=== PATIENT | female | born 1970 | race Caucasian/White ===

== ENCOUNTER 2018-08-26 16:01 | Emergency (ER) | payer OTHER | END 2018-08-26 16:30 | disposition home or self-care (01) | LOC: MADERS 16:01 | DX: J11.1 Influenza due to unidentified influenza virus with other respiratory manifestations (principal); I10 Essential (primary) hypertension; Z79.899 Other long term (current) drug therapy | CPT/HCPCS: 99283 ==

== ENCOUNTER 2020-02-26 17:10 | Emergency (ER) | payer BC, OTHER | END 2020-02-26 17:46 | disposition home or self-care (01) | LOC: MADERS 17:10 | DX: S83.92XA Sprain of unspecified site of left knee, initial encounter (principal); I10 Essential (primary) hypertension; W18.30XA Fall on same level, unspecified, initial encounter | CPT/HCPCS: 99283 ==

== ENCOUNTER 2020-06-26 12:11 | Emergency (ER) | payer BC ==
[~2020-06-26 12:11] MED LIST: Iopamidol 370 76% 100 ML VIAL ONE
[2020-06-26 12:42] LABS: Bilirubin Small (Negative); Blood, Urine Moderate (Negative); Clarity Clear (Clear); Glucose, Urine (Dipstick) Negative (Negative); Ketone, Urine Negative (Negative); Leukocyte Negative (Negative); Nitrite Negative (Negative); Protein, Urine (Dipstick) 100 mg/dL (Neg-Trace); pH, Urine 5.5 (5.0-9.0)
[2020-06-26 12:43] LABS: Specific Gravity, Urine 1.024 (1.002-1.036)
[2020-06-26 12:51] LABS: WBC/HPF None Seen HPF (0-3)
[2020-06-26 12:52] LABS: Bacteria/HPF 1+ HPF (None Seen)
[2020-06-26 13:07] LABS: #Basophils 0.1 thou/uL (0.0-0.2); #Eosinphils 0.1 thou/uL (0.0-0.7); #Lymphocytes 1.1 thou/uL (1.20-3.40); #Monocytes 0.7 thou/uL (0.11-0.59); #Neutrophils 10.6 thou/uL (1.40-6.50); %Basophils 0.5 % (0.0-1.0); %Eosinophils 0.7 % (0.0-10.0); %Lymphocytes 8.9 % (21.0-51.0); %Monocytes 5.4 % (0.0-10.0); %Neutrophils 84.5 % (42.0-75.0); Hemoglobin 12.1 g/dL (12.0-16.0); Mean Corpuscular HGB CONC 34.2 g/dL (32.0-36.0); Mean Corpuscular Hemoglobin 30.1 pg (27.0-31.0); Mean Corpuscular Volume 87.9 fL (78.0-98.0); Mean Platelet Volume 9.1 fL (7.4-10.4); Platelet Count 211 thou/uL (130-400); RBC Distribution Width 12.6 % (11.5-14.5); Red Blood Cell (RBC) Count 4.02 mill/uL (4.20-5.40); White Blood Cell (WBC) Count 12.6 thou/uL (4.8-10.8)
[2020-06-26 13:26] LABS: ALT (SGPT) 13 U/L (8-55); AST (SGOT) 15 U/L (5-34); Albumin 3.9 g/dL (3.5-5.0); Alkaline Phosphatase 76 U/L (40-110); Anion Gap 15 mmol/L (10-20); BUN (Urea Nitrogen) 14 mg/dL (7.0-18.7); Bilirubin, Total 1.1 mg/dL (0.2-1.2); Calc. Creatinine Clearance 0 mL/min (70-130); Calcium 9.6 mg/dL (7.8-10.44); Carbon Dioxide 26 mmol/L (22-29); Chloride 100 mmol/L (98-107); Estimated GFR-MDRD 45; Globulin 3.4 g/dL (2.4-3.5); Glucose 98 mg/dL (70-105); Lipase 14 U/L (8-78); Protein, Total 7.3 g/dL (6.0-8.3); Sodium 138 mmol/L (136-145)
[2020-06-26] MEDS ORDERED: Dextrose 5% in Water 500 ML ONE (13:58)
[2020-06-26] MEDS ORDERED: metroNIDAZOLE 500 MG/100 ML BAG ONE (13:58)
[2020-06-26] MEDS ORDERED: Sodium Chloride 0.9% 3,000 ML ONE (13:58)
[2020-06-26] MEDS ORDERED: Cefepime 2 GM VIAL ONE (13:58)
[2020-06-26] MEDS ORDERED: Sodium Chloride 0.9% 100 ML ONE (13:58)
--- NOTE | 2020-06-26 14:01 | CT ---
CT ABDOMEN AND PELVIS WITH IV CONTRAST: 06/26/20 INDICATIONS: Upper abdominal pain with nausea. FINDINGS: Lung bases are clear. Imaging of the liver reveals a 1.7 cm cyst along the superior margin of the lef t lobe of the liver under the diaphragm. Another small cystic lesion seen peripheral right lobe of th e liver. The liver is otherwise unremarkable. The spleen and pancreas unremarkable. The gallbladder is mildly distended. There are numerous gallstones seen within the gallbladder lumen with central gas density seen within many of these gallstones. No significant pericholecystic edema i dentified. Adrenal glands and kidneys unremarkable. Small bowel loops normal caliber. The right colon is predominantly decompressed although there appears to be mild fluid filled distent ion of the cecum which is low lying in the pelvis. There is a radiopaque density along the tip of the cecum which may indicate prior appendectomy procedure. Mural thickening of the ascending colon canno t be excluded. The transverse colon is gas filled and unremarkable. The left colon shows diffuse diverticulosis. There is inflammatory change surrounding diverticula in the lower descending colon suggesting changes of diverticulitis. There is no evidence of fluid or abs cess collection. No extraluminal gas. There is a cystic mass in the right pelvis measuring 2.2 cm. A right ovarian cyst would be suspected. There is evidence of hysterectomy. Recommend clinical correlation regarding status of the ovaries. IMPRESSION: 1. Diverticulosis of the left colon. Hazy inflammatory change is seen in the mesentery surroundi ng the distal left colon consistent with changes of diverticulitis. No evidence of fluid or abscess c ollection identified. 2. Numerous gas containing gallstones in a mildly distended gallbladder. 3. The cecum is mildly fluid filled and low lying. Portions of ascending colon are decompressed and show evidence of mural thickening. Correlate clinically. 4. Cystic mass in the right pelvis measuring 2.2 cm is most consistent with an ovarian cyst whic h may be abnormal in this age patient. Pelvic ultrasound would not be of benefit in this case as this would probably not be imaged by ultrasound due to surrounding bowel loops. Additional imaging with e lective MRI pelvis could be performed as indicated; however, recommend [employer] consultation prior to furt her imaging. 5. There are at least two small hepatic cysts which appear benign. POS: [facility]
== END 2020-06-26 14:44 | disposition short-term general hospital (02) ==
LOC: MADERS 12:11
DX: A41.9 Sepsis, unspecified organism (principal); E87.6 Hypokalemia; I10 Essential (primary) hypertension; Z79.899 Other long term (current) drug therapy
CPT/HCPCS: 36415; 74177; 80053; 81003; 81015; 83605; 83690; 85025; 87040; 87086; 96365; 96367; J0692; J3370; J3490; J7050; J7070; Q9967

== ENCOUNTER 2020-12-31 19:10 | Emergency (ER) | payer BC, SELFPAY ==
[2020-12-31 20:14] LABS: #Basophils 0.1 thou/uL (0.0-0.2); #Eosinphils 0.2 thou/uL (0.0-0.7); #Lymphocytes 2.3 thou/uL (1.20-3.40); #Monocytes 1.1 thou/uL (0.11-0.59); #Neutrophils 13.5 thou/uL (1.40-6.50); %Basophils 0.8 % (0.0-1.0); %Lymphocytes 13.1 % (21.0-51.0); %Monocytes 6.6 % (0.0-10.0); %Neutrophils 78.6 % (42.0-75.0); Hemoglobin 13.5 g/dL (12.0-16.0); Mean Corpuscular HGB CONC 33.6 g/dL (32.0-36.0); Mean Corpuscular Volume 89.2 fL (78.0-98.0); Mean Platelet Volume 8.8 fL (7.4-10.4); Platelet Count 268 thou/uL (130-400); Red Blood Cell (RBC) Count 4.52 mill/uL (4.20-5.40); White Blood Cell (WBC) Count 17.2 thou/uL (4.8-10.8)
[2020-12-31] MEDS ORDERED: Boostrix 0.5 ML (Tdap) VIAL ONE (20:30)
[2020-12-31] MEDS ORDERED: Amoxicillin/Potassium Clav 875 MG TAB ONE (20:30)
[2020-12-31] MEDS ORDERED: Ondansetron PF 4 MG/2 ML Vial ONE (20:30)
[2020-12-31] MEDS ORDERED: Morphine 4 MG/ML VIAL ONE (20:30)
[2020-12-31 20:34] LABS: ALT (SGPT) 21 U/L (8-55); AST (SGOT) 37 U/L (5-34); Albumin 4.3 g/dL (3.5-5.0); Alkaline Phosphatase 72 U/L (40-110); Anion Gap 15 mmol/L (10-20); BUN (Urea Nitrogen) 12 mg/dL (7.0-18.7); Bilirubin, Total 0.5 mg/dL (0.2-1.2); Calc. Creatinine Clearance 0 mL/min (70-130); Calcium 9.8 mg/dL (7.8-10.44); Carbon Dioxide 23 mmol/L (22-29); Chloride 106 mmol/L (98-107); Globulin 3.1 g/dL (2.4-3.5); Glucose 97 mg/dL (70-105); Potassium 3.4 mmol/L (3.5-5.1); Protein, Total 7.4 g/dL (6.0-8.3); Sodium 141 mmol/L (136-145)
[2020-12-31] MEDS ORDERED: HYDROcodone/Acetaminophen 10/325 mg Tablet ONE (21:50)
[2020-12-31] MEDS ORDERED: Ketorolac Tromethamine 30 MG/ML VIAL ONE (21:50)
[2020-12-31] MEDS ORDERED: Acetaminophen 325 MG TAB ONE (21:51)
== END 2020-12-31 22:20 | disposition home or self-care (01) ==
LOC: MADERS 19:10
DX: S61.452A Open bite of left hand, initial encounter (principal); S61.451A Open bite of right hand, initial encounter; S00.83XA Contusion of other part of head, initial encounter; H05.222 Edema of left orbit; Z23 Encounter for immunization; R00.0 Tachycardia, unspecified; E03.9 Hypothyroidism, unspecified; I10 Essential (primary) hypertension; Z79.899 Other long term (current) drug therapy; Y04.0XXA Assault by unarmed brawl or fight, initial encounter
CPT/HCPCS: 70450; 70486; 71250; 72125; 80053; 85025; 90471; 90715; 96374; 96375; J1885; J2270; J2405

== ENCOUNTER 2022-07-31 18:59 | Emergency (ER) | payer BC ==
[~2022-07-31 18:59] MED LIST changes: -Iopamidol 370 76% 100 ML VIAL ONE; +Iopamidol 370 76% 125 ML VIAL FS ONE
[2022-07-31] MEDS ORDERED: Mag-Al Plus 1200 MG/1200 MG/120 MG/30 ML UDCUP ONE (19:45)
[2022-07-31] MEDS ORDERED: Lidocaine Viscous Sol 2% 15 ml UD Cup ONE (19:45)
[2022-07-31] MEDS ORDERED: Lactated Ringer's 1,000 ML ONE (19:45)
[2022-07-31] MEDS ORDERED: Ondansetron PF 4 MG/2 ML Vial ONE (19:45)
[2022-07-31] MEDS ORDERED: Morphine 4 MG/ML VIAL ONE ×2 (19:45→22:30)
[2022-07-31] MEDS ORDERED: Aspirin 325 MG TAB ONE (19:45)
[2022-07-31 19:50] LABS: #Basophils 0.1 thou/uL (0.0-0.2); #Eosinphils 0.2 thou/uL (0.0-0.7); #Lymphocytes 2.1 thou/uL (1.20-3.40); #Monocytes 0.9 thou/uL (0.11-0.59); #Neutrophils 7.5 thou/uL (1.40-6.50); %Eosinophils 2.2 % (0.0-10.0); %Lymphocytes 19.8 % (21.0-51.0); %Monocytes 7.9 % (0.0-10.0); Hemoglobin 13.9 g/dL (12.0-16.0); Mean Corpuscular HGB CONC 32.7 g/dL (32.0-36.0); Mean Corpuscular Volume 88.7 fL (78.0-98.0); Mean Platelet Volume 9.5 fL (7.4-10.4); Platelet Count 248 thou/uL (130-400); RBC Distribution Width 12.3 % (11.5-14.5); White Blood Cell (WBC) Count 10.8 thou/uL (4.8-10.8)
[2022-07-31 20:09] LABS: ALT (SGPT) 17 U/L (8-55); AST (SGOT) 26 U/L (5-34); Albumin 4.2 g/dL (3.5-5.0); Alkaline Phosphatase 61 U/L (40-110); Anion Gap 13 mmol/L (10-20); BUN (Urea Nitrogen) 14 mg/dL (9.8-20.1); Bilirubin, Total 0.5 mg/dL (0.2-1.2); CK (CPK) 99 U/L (29-168); Calc. Creatinine Clearance 0 mL/min (70-130); Carbon Dioxide 25 mmol/L (22-29); Chloride 105 mmol/L (98-107); Estimated GFR 82; Globulin 3.2 g/dL (2.4-3.5); Glucose 111 mg/dL (70-105); Lipase 24 U/L (8-78); Magnesium 1.8 mg/dL (1.6-2.6); Potassium 3.7 mmol/L (3.5-5.1); Protein, Total 7.4 g/dL (6.0-8.3); Sodium 139 mmol/L (136-145)
[2022-07-31 21:11] LABS: Bilirubin Negative (Negative); Blood, Urine Negative (Negative); Clarity Clear (Clear); Glucose, Urine (Dipstick) Negative (Negative); Ketone, Urine Negative (Negative); Leukocyte Negative (Negative); Nitrite Negative (Negative); Protein, Urine (Dipstick) Negative (Neg-Trace); Specific Gravity, Urine 1.005 (1.002-1.036); Urobilinogen 0.2 mg/dL (Less than 2)
[2022-07-31] MEDS ORDERED: Ketorolac Tromethamine 30 MG/ML VIAL ONE (22:42)
[2022-07-31] MEDS ORDERED: Piperacillin/Tazobactam 4.5 GM VIAL ONE (22:42)
[2022-07-31] MEDS ORDERED: Sodium Chloride 0.9% 100 ML ONE (22:42)
[2022-07-31 23:43] LABS: Pregnancy Test - Urine (BHCG) Negative (Negative); Pregu Control Background? CLEAR/WHITE (CLR/WHITE); Pregu Control Bar Appear? YES (CONTROL BAR); Specific Gravity 1.007 (1.002-1.036)
== END 2022-08-01 02:02 | disposition short-term general hospital (02) ==
LOC: MADERS 18:59
DX: K80.60 Calculus of gallbladder and bile duct with cholecystitis, unspecified, without obstruction (principal); I10 Essential (primary) hypertension; E03.9 Hypothyroidism, unspecified; K21.9 Gastro-esophageal reflux disease without esophagitis; Z79.899 Other long term (current) drug therapy
CPT/HCPCS: 36415; 71045; 71275; 74177; 80053; 81003; 81025; 82550; 83605; 83690; 83735; 84484; 85025; 85379; 87804; 93005; 94760; 96361; 96365; 96375; 96376; J1885; J2270; J2405; J2543; J3490; J7120; Q9967

== ENCOUNTER 2023-11-04 09:46 | Emergency (ER) | payer BC, OTHER ==
[2023-11-04] MEDS ORDERED: Ketorolac Tromethamine 30 MG (1 mL) VIAL ONE (10:33)
== END 2023-11-04 10:54 | disposition home or self-care (01) ==
LOC: MADERS 09:46
DX: J06.9 Acute upper respiratory infection, unspecified (principal); I10 Essential (primary) hypertension; K21.9 Gastro-esophageal reflux disease without esophagitis; Z79.899 Other long term (current) drug therapy
CPT/HCPCS: 87804; 96372; 99284; J1885